=== PATIENT | female | born 1970 | race Caucasian/White ===

== ENCOUNTER 2018-09-25 21:09 | Emergency (ER) | payer MEDICAID ==
[~2018-09-25] VITALS: Ht 165.1 cm; Wt 66.3 kg
[~2018-09-25 21:09] MED LIST: MAGN296S50 PO
[2018-09-25 22:20] LABS: BASOPHILS # (AUTO) 0.1 X10'3 (0-0.2); BASOPHILS % (AUTO) 0.9 % (0-1); EOSINOPHILS # (AUTO) 0.2 X10'3 (0-0.9); EOSINOPHILS % (AUTO) 2.1 % (0-6); HEMATOCRIT 37.2 % (35.0-45.0); HEMOGLOBIN 12.6 g/dl (12.0-16.0); LYMPHOCYTES # (AUTO) 2.8 X10'3 (1.1-4.8); LYMPHOCYTES % (AUTO) 33.1 % (21-51); MEAN CORPUSCULAR HEMOGLOBIN 32.4 PG (27.0-31.0); MEAN CORPUSCULAR HGB CONC 33.8 g/dL (33.0-36.5); MEAN PLATELET VOLUME 8.6 FL (7.4-10.4); MONOCYTES # (AUTO) 0.7 X10'3 (0-0.9); MONOCYTES % (AUTO) 8.7 % (2-12); NEUTROPHILS # (AUTO) 4.6 X10'3 (1.8-7.7); NEUTROPHILS % (AUTO) 55.2 % (42-75); PLATELET COUNT 289 X10'3 (140-440); RED BLOOD COUNT 3.88 X10'6 (4.20-5.60); RED CELL DISTRIBUTION WIDTH 14.9 % (11.5-14.5); WHITE BLOOD COUNT 8.3 X10'3 (4.5-11.0)
[2018-09-25 22:35] LABS: ALANINE AMINOTRANSFERASE 31 U/L (12-78); ALBUMIN 3.6 G/DL (3.4-5.0); ALBUMIN/GLOBULIN RATIO 1.2 (1.1-1.5); ALKALINE PHOSPHATASE 86 IU/L (46-116); ANION GAP 8 (8-16); ASPARTATE AMINO TRANSFERASE 20 U/L (10-37); BILIRUBIN,TOTAL 0.1 MG/DL (0.1-1.0); BLOOD UREA NITROGEN 14 MG/DL (7-18); BUN/CREATININE RATIO 17.3 (6.6-38.0); CALCIUM 8.8 MG/DL (8.5-10.1); CHLORIDE 106 MMOL/L (99-107); CREATININE 0.81 MG/DL (0.40-0.90); GLUCOSE 88 MG/DL (70-104); POTASSIUM 3.5 MMOL/L (3.5-5.1); SODIUM 142 MMOL/L (135-145); TOTAL PROTEIN 6.7 G/DL (6.4-8.2); eGFR 75 ML/MIN
[2018-09-25 22:56] LABS: CLARITY,URINE SLIGHTLY CLOUDY (Clear); GLUCOSE, URINE NEGATIVE (Neg); KETONES,URINE NEGATIVE (Neg); LEUKOCYTE ESTERASE ,URINE SMALL (Neg); NITRITES, URINE NEGATIVE (Neg); OCCULT BLOOD,URINE LARGE (Neg); PROTEIN,URINE NEGATIVE (Neg); UROBILINOGEN,URINE 0.2 E.U/dL (0.2-1.0)
[2018-09-25] MEDS ORDERED: FURO-150 PO (23:22)
[2018-09-25] MEDS ORDERED: POTA20TA19 PO (23:22)
[2018-09-25 23:23] LABS: COLOR,URINE PINK (Yellow); UA COLLECTION TYPE CLN CATCH MIDSTREAM
[2018-09-25 23:24] VITALS: BP 132/82
[2018-09-25 23:25] LABS: BACTERIA,URINE FEW /HPF (Neg); MUCUS STRANDS NONE SEEN /LPF (Neg); RBC,URINE 0-2 /HPF (0-2); SQUAMOUS EPITHELIAL CELL,UR FEW /LPF (FEW); WBC,URINE 0-4 /HPF (0-4)
--- NOTE | 2018-09-26 00:08 | NUR ---
dr ba talking with pt about dc instructions, meds and f/u. Pt reports she has taken lasix in the past. She reports she has been in regular contact with her PCP and will updated her PCP of ravi visit. Stable vs.
== END 2018-09-26 | disposition home or self-care (01) ==
LOC: ER 21:12
DX: R60.9 Edema, unspecified (principal); M79.604 Pain in right leg; M79.605 Pain in left leg; J44.9 Chronic obstructive pulmonary disease, unspecified; N18.9 Chronic kidney disease, unspecified; G89.29 Other chronic pain; Z90.49 Acquired absence of other specified parts of digestive tract; Z90.710 Acquired absence of both cervix and uterus; Z98.890 Other specified postprocedural states; Z87.891 Personal history of nicotine dependence; Z60.2 Problems related to living alone; Z88.0 Allergy status to penicillin; Z88.1 Allergy status to other antibiotic agents; Z88.8 Allergy status to other drugs, medicaments and biological substances; Z79.899 Other long term (current) drug therapy
CPT/HCPCS: 36415; 80053; 81001; 85025; 87088; 99284

== ENCOUNTER 2021-04-24 14:26 | Day surgery (SDC) | payer MEDICARE, MEDICAID ==
[2021-04-19 12:48] LABS: BASOPHILS # (AUTO) 0.1 X10'3 (0-0.2); EOSINOPHILS # (AUTO) 0.3 X10'3 (0-0.9); HEMOGLOBIN 13.1 g/dl (12.0-16.0); LYMPHOCYTES # (AUTO) 2.1 X10'3 (1.1-4.8); MONOCYTES # (AUTO) 0.9 X10'3 (0-0.9); RED BLOOD COUNT 4.36 X10'6 (4.20-5.60)
[2021-04-19 12:50] LABS: BASOPHILS % (AUTO) 1.3 % (0-1); EOSINOPHILS % (AUTO) 2.8 % (0-6); HEMATOCRIT 40.4 % (35.0-45.0); LYMPHOCYTES % (AUTO) 20.5 % (21-51); MEAN CORPUSCULAR HGB CONC 32.4 g/dL (33.0-36.5); MEAN CORPUSCULAR VOLUME 92.6 FL (78-98); MEAN PLATELET VOLUME 8.8 FL (7.4-10.4); MONOCYTES % (AUTO) 8.3 % (2-12); NEUTROPHILS % (AUTO) 67.1 % (42-75); PLATELET COUNT 348 X10'3 (140-440); RED CELL DISTRIBUTION WIDTH 16.3 % (11.5-14.5); WHITE BLOOD COUNT 10.4 X10'3 (4.5-11.0)
[2021-04-19 12:59] LABS: ALBUMIN 3.4 G/DL (3.4-5.0); ANION GAP 10 (8-16); BLOOD UREA NITROGEN 13 MG/DL (7-18); BUN/CREATININE RATIO 17.6 (6.6-38.0); CALCIUM 8.7 MG/DL (8.5-10.1); CHLORIDE 110 MMOL/L (99-107); CREATININE 0.74 MG/DL (0.40-0.90); GLUCOSE 82 MG/DL (70-104); POTASSIUM 3.7 MMOL/L (3.5-5.1); SODIUM 143 MMOL/L (135-145); TOTAL CARBON DIOXIDE 22.6 MMOL/L (24-32); eGFR 82 ML/MIN
[2021-04-19 13:02] LABS: APTT 25 SECONDS (22-32)
[~2021-04-24] VITALS: Ht 170.2 cm; Wt 60.6 kg
[2021-04-24] VITALS (9 sets, daily range): BP systolic 102–117; BP diastolic 52–68
[~2021-04-24 14:26] MED LIST changes: +FURO-150 PO; -MAGN296S50 PO; +MAGN296S70 PO
[2021-04-24] MEDS ORDERED: normal saline 1,000 ML IV SCH (14:45)
[2021-04-24] MEDS ORDERED: LORazepam 0.5 MG tablet PO PRN (14:45)
[2021-04-24] MEDS ORDERED: diphenhydrAMINE 25mg capsule PO PRN (14:45)
[2021-04-24] MEDS ORDERED: PRED20TA PO (15:22)
[2021-04-24] MEDS ORDERED: ONDA4TAB12 PO (15:22)
[2021-04-24] MEDS ORDERED: LEVO125T8 PO (15:22)
[2021-04-24] MEDS ORDERED: NITR0.4T48 SL (15:22)
[2021-04-24] MEDS ORDERED: PRED5TAB TOP (15:22)
[2021-04-24] MEDS ORDERED: TIOT18CA3 INH (15:22)
[2021-04-24] MEDS ORDERED: ACET250T3 PO (15:22)
[2021-04-24] MEDS ORDERED: BUPR8TAB4 SL (15:22)
[2021-04-24] MEDS ORDERED: PANT40TA54 PO (15:22)
[2021-04-24] MEDS ORDERED: SERT-434 PO (15:22)
[2021-04-24] MEDS ORDERED: PROP20TA6 PO (15:22)
[2021-04-24] MEDS ORDERED: METF-1203 PO (15:22)
[2021-04-24] MEDS ORDERED: DEXA2TAB PO (15:22)
[2021-04-24] MEDS ORDERED: AMIT100T2 PO (15:22)
[2021-04-24] MEDS ORDERED: ERGO500093 PO (15:22)
[2021-04-24] MEDS ORDERED: KETO60VI28 IM (15:22)
[2021-04-24] MEDS ORDERED: ALBU18HF2 INH (15:22)
[2021-04-24] MEDS ORDERED: TIZA-205 PO (15:22)
[2021-04-24] MEDS ORDERED: HYDR-3686 PO (15:22)
[2021-04-24] MEDS ORDERED: GABA300C PO (15:22)
[2021-04-24] MEDS ORDERED: OXYC10TA47 PO (15:22)
[2021-04-24] MEDS ORDERED: IPRA3AMP31 NEB (15:22)
[2021-04-24] MEDS ORDERED: midazolam 1 mg/ML 2ml injection ONE (15:28)
[2021-04-24] MEDS ORDERED: fentaNYL/PF 50MCG/1 ML 2ML syringe ONE ×2 (15:28→17:24)
[2021-04-24] MEDS ORDERED: LIDOcaine 1% (10mg/ml)w/preservative injection 20ml MDV ONE (15:28)
[2021-04-24] MEDS ORDERED: iohexol 350MG/ML 100ml bottle IV ONE (15:28)
[2021-04-24] MEDS ORDERED: nitroGLYCERIN-Tridil 50MG/D5W 250 ML IV ONE (15:29)
[2021-04-24] MEDS ORDERED: heparin 1,000unit/ml 10ml vial 10 ML ONE (15:29)
[2021-04-24] MEDS ORDERED: verapamil 2.5 mg/ml inj IV ONE ×2 (15:29→16:18)
[2021-04-24] MEDS ORDERED: OXAZEpam 15mg capsule PO PRN (18:15)
[2021-04-24] MEDS ORDERED: ondansetron/PF 4mg/2ml inj IV PRN (18:15)
[2021-04-24] MEDS ORDERED: proCHLORperazine 10 MG/2 ml inj IV PRN (18:15)
== END 2021-04-24 20:00 | disposition home or self-care (01) ==
LOC: SSTAY O 14:26
PROVIDERS: ATTEND Internal Medicine Interventional Cardiology
DX: R94.39 Abnormal result of other cardiovascular function study (principal); R07.89 Other chest pain; I25.10 Atherosclerotic heart disease of native coronary artery without angina pectoris; E11.9 Type 2 diabetes mellitus without complications; J44.9 Chronic obstructive pulmonary disease, unspecified; E03.9 Hypothyroidism, unspecified; E78.5 Hyperlipidemia, unspecified; F17.210 Nicotine dependence, cigarettes, uncomplicated; Z79.84 Long term (current) use of oral hypoglycemic drugs; Z79.899 Other long term (current) drug therapy; Z88.1 Allergy status to other antibiotic agents; Z88.0 Allergy status to penicillin; Z88.8 Allergy status to other drugs, medicaments and biological substances
CPT/HCPCS: 36415; 80048; 85025; 85610; 85730; 93005; 93458; 99152; 99153; C1751; C1769; C1894; J1644; J2250; J3010; J3490; J7030; Q0163; Q9967; A4620; A6258